=== PATIENT | female | born 1985 | race Caucasian/White ===

== ENCOUNTER 2022-12-01 22:09 | Emergency (ER) | payer OTHER, SELFPAY ==
--- NOTE | ~2022-12-01 | XR_ITS ---
EXAMINATION: XR chest 2V DATE: 12/01/2022 22:24 INDICATION: Chest pain radiating down the left arm. TECHNIQUE: Frontal and lateral views of the chest were obtained. COMPARISON: Chest 2 views 03/14/2014, chest CT 03/15/2014 FINDINGS: The chest demonstrates clear lungs without pneumonia, pleural effusion, or pneumothorax. Th e heart size is normal. IMPRESSION: 1. No acute cardiopulmonary disease. Reviewed, dictated and finalized at location E.
--- NOTE | 2022-12-01 22:12 | ECG_ITS ---
Measurements Intervals [place] Rate: 77 P: 57 SD: 119 QRS: 71 QRSD: 81 T: 64 QT: 360 QTc: 410 Interpretive Statements SINUS RHYTHM WITH SHORT SD INTERVAL NO PREVIOUS ECG AVAILABLE FOR COMPARISON Electronically Signed On 12-02-2022 11:00:46 CDT by Larry Sotelo M.D.
[2022-12-01 22:13] VITALS: BP 142/76; PULSE 89; RESP 18; TEMP 36.8; O2SAT 100
[2022-12-01 22:45] LABS: Basophils Absolute Auto 0.1 K/mm3 (0.0-0.1); Basophils Percent Auto 0.8 % (0.2-1.2); Eosinophils Absolute Auto 0.1 K/mm3 (0-0.3); Eosinophils Percent Auto 1.5 % (0-4.4); Hematocrit 41.7 % (37.0-47.0); Hemoglobin 13.6 g/dL (12.0-15.0); Immature Granulocyte Absolute 0.02 K/mm3 (0.00-0.031); Immature Granulocyte Percent A 0.3 % (0-0.5); Lymphocytes Percent Auto 37.1 % (18.3-44.2); Mean Corpuscular HGB Conc 32.6 g/dl (32-36); Mean Corpuscular Hemoglobin 29.2 pg (26-34); Mean Corpuscular Volume 89.7 fl (80-100); Mean Platelet Volume 9.5 fl (7.4-10.4); Monocytes Absolute Auto 0.8 K/mm3 (0.1-0.6); Monocytes Percent Auto 10.7 % (2.6-8.5); Neutrophils Absolute Auto 3.6 K/mm3 (1.3-6.7); Neutrophils Percent Auto 49.6 % (45.5-73.1); Platelet Count Result 302 k/mm3 (150-375); Red Blood Count 4.65 M/mm3 (4.2-5.4); Red Cell Distribution Width 12.8 % (11.5-14.5); White Blood Count 7.3 K/mm3 (4.5-10.0)
[2022-12-01 22:58] LABS: Prothrombin Time 13.5 Seconds (11.1-14.7)
[2022-12-01 23:06] LABS: Alanine Aminotransferase 21 U/L (6-35); Albumin Level 4.5 g/dL (3.5-5.1); Alkaline Phosphatase 47 U/L (38-126); Anion Gap 5 mmol/L (8-16); Aspartate Amino Transferase 30 U/L (14-36); Blood Urea Nitrogen 17 mg/dL (7-17); Calcium 9.2 mg/dL (8.4-10.2); Carbon Dioxide 29 mmol/L (22-30); Chloride 104 mmol/L (98-107); Estimated CRCL calculation 81 ml/min; Estimated Glomerular Filt Rate > 60; Glucose 99 mg/dL (65-110); Lipase 109 U/L (23-300); Potassium 3.7 mmol/L (3.4-5.0); Sodium 138 mmol/L (137-145)
[2022-12-01 23:18] LABS: Troponin I < 0.012 ng/mL (0.000-0.034)
--- NOTE | 2022-12-02 00:50 | ED.CHESTPAIN ---
HPI - Chest Pain General Chief Complaint: Chest Pain Stated Complaint: chest pain Time Seen by Provider: 12/02/22 00:11 Source: patient Mode of arrival: ambulatory Limitations: no limitations History of Present Illness HPI narrative: Patient is a 37-year-old female who presents to the ED with report of left-sided chest pain. Patient reports she was sitting on the couch watching TV around 9:30 PM when she developed pain in her sided chest. She states the pain is sharp and stabbing and began radiating into her left shoulder and down her left arm. She states the sharp pain lasted for 2 to 3 minutes before subsiding, however she still had some lingering discomfort in her left arm. Patient reported feeling mildly short of breath with the pain. Denies any nausea or vomiting, diaphoresis, abdominal pain, numbness or tingling. Since being in the ED, pain has resolved. Patient reported having similar pain in the past, but states it never radiated to her arm. She has otherwise felt in her normal state of health the last few days. She denies history of coronary disease, blood clots, hypertension, hyperlipidemia, diabetes, family history of heart disease, recent lower extremity pain or swelling, recent cough or cold sx's, hormonal control use, smoking history. Related Data Allergies Allergy/AdvReac Type Severity Reaction Status Date / Time No Known Allergies Allergy Verified 12/01/22 22:16 Review of Systems Review of Systems: CONSTITUTIONAL: Denies fever, chills, or sweats. ENT: Denies rhinorrhea, congestion, sore throat. CARDIOVASCULAR: See HPI. RESPIRATORY: See HPI. GASTROINTESTINAL: Denies abdominal pain, nausea, vomiting, or diarrhea. GENITOURINARY: Denies dysuria or hematuria. SKIN: Denies rash or itching. MUSCULOSKELETAL: See HPI. NEUROLOGIC: Denies tingling, numbness, or weakness. All systems reviewed & are unremarkable except as noted in HPI and below PMFSH Past Medical History Medical History (Updated 12/02/22 @ 02:05 by Saniya Goldsmith PA-C) No pertinent past medical history Surgical History Surgical History (Updated 12/02/22 @ 02:05 by Saniya Goldsmith PA-C) No pertinent past surgical history Social History Social History (Updated 12/02/22 @ 02:05 by Saniya Goldsmith PA-C) Smoking status: Never smoker Exam Narrative: GENERAL: Well appearing, well-nourished, non-toxic, in no acute distress. HEAD: Normocephalic, atraumatic. NECK: Supple. No adenopathy, no masses. RESPIRATORY: Airway patent, respirations nonlabored. Clear to auscultation bilaterally, no rales, rhonchi, wheezing. CARDIOVASCULAR: Regular rate and rhythm without murmurs, rubs, or gallops. Radial pulses 2+ and equal bilaterally. ABDOMINAL: Soft, nontender, nondistended, no hepatosplenomegaly. Normoactive BS. MUSCULOSKELETAL: Moves all extremities. Strength/ROM intact without gross deformities. No edema. No calf tenderness. No chest wall tenderness palpation. SKIN: Warm, dry, normal color. No rashes. NEURO: A&O X3. Speech clear. Cranial nerves II-XII grossly intact. Steady gait. No ataxic movements. PSYCHIATRIC: Appropriate mood and affect. Normal interaction. Course Vital Signs Vital signs: Vital Signs Temperature 98.2 F 12/01/22 22:13 Pulse Rate 89 12/01/22 22:13 Respiratory Rate 18 12/01/22 22:13 Blood Pressure 142/76 H 12/01/22 22:13 Pulse Oximetry 100 12/01/22 22:13 Oxygen Delivery Room Air 12/01/22 22:13 Temperature 98.2 F 12/01/22 22:13 Pulse Rate 89 12/01/22 22:13 Respiratory Rate 18 12/01/22 22:13 Blood Pressure 142/76 H 12/01/22 22:13 Pulse Oximetry 100 12/01/22 22:13 Oxygen Delivery Room Air 12/01/22 22:13 MDM - Chest Pain MDM Narrative Medical decision making narrative: Patient presented to ED with onset of left-sided chest pain radiating into left upper extremity. VSS upon arrival. Patient's EKGs and labs are without significant high risk c
[2022-12-02 01:06] VITALS: PULSE 61; RESP 17; O2SAT 100
[2022-12-02 01:15] VITALS: PULSE 64; RESP 17; O2SAT 100
[2022-12-02 01:30] VITALS: PULSE 62; PULSE 70; RESP 19; O2SAT 99
[2022-12-02 01:45] VITALS: PULSE 64; RESP 17; O2SAT 98
[2022-12-02 01:54] LABS: Troponin I < 0.012 ng/mL (0.000-0.034)
== END 2022-12-02 02:04 | disposition home or self-care (01) ==
PROVIDERS: Preventive Medicine Aerospace Medicine; Emergency Provider Physician Assistant; PCP Internal Medicine
DX: R07.89 Other chest pain (principal); R94.31 Abnormal electrocardiogram [ECG] [EKG]
CPT/HCPCS: 36415; 71046; 80053; 83690; 84484; 85025; 85610; 85730; 93005; 99284

== ENCOUNTER 2025-03-14 10:58 | Outpatient (CLI) | payer OTHER, SELFPAY ==
--- OUTSIDE RECORDS SUMMARY | 2025-03-14 11:03 | XMS_ITS | Clinical Summary ---
Author Organization [facility] Address [address] [place] [address] Care Team Providers Care Transformation Consultant Name Role Phone None, Provider MD Primary Care Provider Unavaila ble Allergies No known active allergies Social History Tobacco Use Types Packs/Day Years Used Date Smoking Tobacco: Never Smokeless Tobacco: Never Alcohol Use Standard Drinks/Week Comments Yes 0 (1 standard drink = 0.6 oz pur e alcohol) social Comments No Sex and Gender Information Value Date Recorded Sex Assigned at Not on file Legal Sex Female 12:13 AM CDT Gender Identity Not on file Sexual Orientation Not on file Last Filed Vital Signs Vital Sign Reading Time Taken Comments Blood Pressure 117/80 02/20/2019 3:23 AM CDT Pulse 65 02/20/2019 3:23 AM CDT Temperature 37.1 C (98.8 F) 02/20/2019 12:22 AM CDT Respiratory Rate 18 02/20/2019 3:23 AM CDT Oxygen Saturation 99% 02/20/2019 3:23 AM CDT Inhaled Oxygen Concentration - - Weight 61.9 kg (136 lb 6.4 oz) 02/20/2019 12:22 AM CDT Height 170.2 cm (5' 7) 02/20/2019 12:22 AM CDT Body Mass Index 21.36 02/20/2019 12:22 AM CDT Plan of Treatment Health Maintenance Due Date Last Done Comments Cervical Cancer Screening Pa p Smear (Age 30 to 64) Every 3 Years 1984 Annual Physical 11/26/1987 Hepatitis C 2002 DTaP, Tdap and Td Vaccines ( 1 - Tdap) 11/26/2003 Hepatitis B Vaccines (1 of 3 - 19+ 3-dose series) 11/26/2003 HPV Vaccines (1 - 3-dose SCD M series) 11/26/2011 Cervical Cancer Screening Pa p with HPV Testing (Age 30 to 64) Every 5 Years 2014 Cervical Cancer Screening with HPV 2014 COVID-19 Vaccine (2023-2 5 season) 2024 Mammogram Screening 2024 Meningococcal B Vaccine Aged Out No l onger eligible based on patient's age to complete this topic Meningococcal Vaccine Aged Out No shoaib yulissa eligible based on patient's age to complete this topic Pneumococcal Vaccine: Pediat rics (0 to 5 Years) and At-Risk Patients (6 to 49 Years) Aged Out No longer eligible b ased on patient's age to complete this topic RSV Immunizations Under 20 Months Aged Out No longer eligible based on patient's age to complete this topic Insurance NA Care Teams Transformation Consultant Relationship Specialty Start Date End Date None, Provider, PCP - General 02/20/19
--- OUTSIDE RECORDS SUMMARY | 2025-03-14 11:03 | XMS_ITS | Clinical Summary ---
Author Organization [facility] Address [address] [facility] [place] [address] Care Team Providers Care Bunghole Borer Name Role Phone Adrianne Bliss NP Primary Care Provider [phone] Allergies No known active allergies Medications citalopram (CeleXA) 20 mg tabletIndication s:Anxiety with Depression Take 1 tablet (20 mg total) by mouth daily 30 tablet 1 08/29/2024 6 Active Active Problems Problem Noted Date Diagnosed Date Moderate episode of recurrent major depressive d isorder 08/29/2024 Assessment & Plan (08/29/2024 11:03 AM PREMIUM SERVICE REPRESENTATIVE): This is a significant, separately identifiable problem that was evaluated and managed on the same day as the wellness exam Abdominal pain 03/24/2022 BMI 22.0-22.9, adult 06/23/2021 Major depressive disorder wi th single episode, in full remission 06/17/2020 Screening for diabetes mellitus 06/17/2020 Sore throat and laryngitis 10/18/2019 Attention deficit hyperactiv ity disorder (ADHD), predominantly inattentive type 04/12/2019 Capsular contracture of breast implant 9 Overview (12/21/2018): Added automatically from request for surgery [id number] PND (post-nasal drip) 11/06/2018 Anxiety 03/07/2016 Encounters Date Type Department Care Team Description 02/18/2025 Telephone [facility] Family Medicine [address] [address] Adrianne Bliss NP Additional Services Or Orders from Last 3 Months Immunizations Immunization Administration Dates Next Due Influenza, Quadrivalent, Spl it, Intramuscular 08/01/2017 Influenza, Quadrivalent, Spl it, Preservative Free, Intramuscular 06/17/2020 Influenza, Unspecified 08/29/2024(Deferr ed: Patient Refused),08/07/2023(Deferred: Patient Refused) Tdap 01/16/2015 Surgical History Surgery Date Site/Laterality Comments BREAST SURGERY 08/07/2005 - 08/06/2006 bilateral breast implants Medical History Medical History Date Comments Anxiety Family History Medical History Relation Name Comments No Known Problems Father Anesthesia problems Maternal Grandmother COPD Mother Hypertension Mother Relation Name Status Comments Father Alive Maternal Grandmother Mother Alive Social History Tobacco Use Types Packs/Day Years Used Date Smoking Tobacco: Never Smokeless Tobacco: Never Alcohol Use Standard Drinks/Week Comments Yes 0 (1 standard drink = 0.6 oz pur e alcohol) rare AUDIT-C Answer Date Recorded Q1: How often do you have a drink containing alc ohol? Monthly or less 03/24/2022 Q2: How many drinks containi ng alcohol do you have on a typical day when you are drinking? 1 or 2 03/24/2022 Frequency of Binge Drinking Not on file 03/07 PHQ-2 Answer Date Recorded PHQ-2 Total Score (If total score is 3 or more points, staff should administer the PHQ-9) 4 08/29/2024 PHQ-9 Answer Date Recorded PHQ-9 Total Score 6 08/29/2024 Comments No Sex and Gender Information Value Date Recorded Sex Assigned at Not on file Legal Sex Female 8:32 PM PREMIUM SERVICE REPRESENTATIVE Gender Identity Not on file Sexual Orientation Not on file Obstetrics History Last Filed Vital Signs Vital Sign Reading Time Taken Comments Blood Pressure 108/74 08/29/2024 10:35 AM PREMIUM SERVICE REPRESENTATIVE Pulse 78 08/29/2024 10:35 AM PREMIUM SERVICE REPRESENTATIVE Temperature 37.1 C (98.7 F) 08/29/2024 10:35 AM PREMIUM SERVICE REPRESENTATIVE Respiratory Rate 12 03/24/2022 1:16 PM CDT Oxygen Saturation 98% 08/29/2024 10:35 AM PREMIUM SERVICE REPRESENTATIVE Inhaled Oxygen Concentration - - Weight 65.8 kg (145 lb) 08/29/2024 10:35 AM PREMIUM SERVICE REPRESENTATIVE Height 170.2 cm (5' 7) 08/29/2024 10:35 AM PREMIUM SERVICE REPRESENTATIVE Body Mass Index 22.71 08/29/2024 10:35 AM PREMIUM SERVICE REPRESENTATIVE Plan of Treatment Health Maintenance Due Date Last Done Comments Breast Cancer Screening-Mammogram 1984 Hepatitis C Screening 1984 Varicella Vaccines (1 of 2 - 13+ 2-dose series) 1997 Hepatitis B Screening 2002 HPV Vaccines (1 - 3-dose SCDM series) 11/26/2011 Cervical Cancer Screening 06/16/2021 06/16/2020 DTaP/Tdap/Td Vaccine (2 - Td or Tdap) 01/16/2025 01/16/2015 Influenza Vaccine (#1) 2025 06/17/2020, 2016 Depression Screening 08/29/2025 08/29/2024, 08/29/2024, 03/24/2022, Additional history exists Regular Well Visit/Exam 18-64 08/29/2025 08/29/2024 Pneumococcal vaccine <65 Aged Out No longer eligible based on patient's age to complete this topic Procedures Procedure Name Priority Date/Time Associated Diagnosis Comments GENITAL FLUID PAP SMEAR, THI N PREP WITH HPV EVALUATION Routine 06/16/2020 from Last 3 Months or Most Recently Relevant to Health Maintenance Results * Genital fluid pap smear, thin prep with HPV evaluation (06/16/2020) 06/16/2020 [facility] Provider LAB CYTOLOGY ORDERABLES F inal Result from Last 3 Months or Most Recently Relevant to Health Maintenance Insurance RADHA OPEN ACCESS CIGNA CIGNA OPEN ACCESS CIGNA Care Teams Bunghole Borer Relationship Specialty Start Date End Date Adrianne Bliss NP [address] [facility] [address] [place] [address] PCP - General Internal Medicine 11/02/22
--- OUTSIDE RECORDS SUMMARY | 2025-03-14 11:03 | XMS_ITS | Patient Health Record ---
Author Organization [facility] [employer] Address [facility] [facility] [address] [facility] [address] [place] [address] Care Team Providers Care Email Production Specialist Name Role Phone Rgoer Aguilar Unavailable [phone] Reason For Referral No Information Plan Of Treatment No Information
--- OUTSIDE RECORDS SUMMARY | 2025-03-14 11:03 | XMS_ITS | Encounter Summary ---
Author Organization [employer] Address [address] [place] [address] Care Team Providers Care Telecommunications Line Mechanic Name Role Phone Unavailable Primary Care Provider Unavailabl e Encounter Details Date Type Department Care Team (Late st Contact Info) Description 01/21/2005 Emergency [facility] Simone Henry MD [address] [place] [id number] Er, Authorized P NO ADDRESS ON FILE DEPRESS PSYCHOSIS-UNSPEC (Primary Dx) Social History Tobacco Use Types Packs/Day Years Used Date Smoking Tobacco: Never Assessed Comments Unknown Sex and Gender Information Value Date Recorded Sex Assigned at Not on file Legal Sex Female 4:54 AM PROJECT MANAGEMENT DIRECTOR Gender Identity Not on file Sexual Orientation Not on file documented as of this encounter Plan of Treatment Not on file documented as of this encounter Visit Diagnoses Diagnosis Major depressive disorder, single episode, unspecified- Primary documented in this encounter
--- OUTSIDE RECORDS SUMMARY | 2025-03-14 11:03 | XMS_ITS | Clinical Summary ---
Author Organization [facility] Address [address] [place] [address] Care Team Providers Care Automation Control Technician Name Role Phone Unavailable Primary Care Provider Unavailabl e Encounters Date Type Department Care Team Description 12/26/2024 External Device Data [facility] ABSTRACTION Provider, Abstract 12/25/2024 External Device Data [facility] ABSTRACTION Provider, Abstract 12/24/2024 External Device Data [facility] ABSTRACTION Provider, Abstract from Last 3 Months Social History Tobacco Use Types Packs/Day Years Used Date Smoking Tobacco: Never Assessed Comments Unknown Sex and Gender Information Value Date Recorded Sex Assigned at Not on file Legal Sex Female 4:54 AM PLASTER CASTER Gender Identity Not on file Sexual Orientation Not on file Plan of Treatment Health Maintenance Due Date Last Done Comments HPV VACCINES (1 - 3-dose series) 11/26/1999 HEPATITIS B VACCINES (1 of 3 - 19+ 3-dose series) 11/26/2003 HPV/Cotest (21-29) 2005 CERVICAL CANCER SCREENING 2014 HPV/Cotest (30-65) 2014 PAP SMEAR 2014 BREAST CANCER SCREENING 01/15/2025 01/16/2024 DTAP/TDAP/TD VACCINES (2 - Td or Tdap) 01/16/2025 INFLUENZA VACCINE (#1) 2025 06/17/2020, 2016 Procedures Procedure Name Priority Date/Time Associated Diagnosis Comments MAMMO 3D EDITA DIAGNOSTIC BILAT W OR WO CAD Routine 01/16/2024 11:16 AM CDT Mass of right breast, unspecified quadrant from Last 3 Months or Most Recently Relevant to Health Maintenance Results * MAMMO 3D EDITA DIAGNOSTIC BILAT W OR WO CAD (01/16/2024 11:16 AM CDT) Anatomical Region Laterality Modality Breast Bilateral Mammography 01/16/2024 11:2 8 AM CDT Impressions 01/16/2024 12:01 PM CDT IMPRESSION: No mammographic evidence of malignancy. OVERALL FINAL ASSESSMENT: BI-RADS CATEGORY 1 : Negative RECOMMENDATIONS: Routine mammogram in one year. Narrative 01/16/2024 12:01 PM CDT EXAM: BILATERAL DIAGNOSTIC FULL-FIELD DIGITAL MAMMOGRAPHY WITH CAD WITH 3D TOMOSYNTHESIS DATE: 01/16/2024 11:16 AM HISTORY: Palpable area of the right breast TECHNIQUE: Mediolateral oblique and craniocaudal views of both breasts were performed using full field digital mammography. Additionally, a 90 degree lateral projection of the right breast was obtained. Low-dose full-field digital breast tomosynthesis examination was performed with 2D and 3D acquisitions. Examination is read in conjunction with computer aided detection. COMPARISON: None. Baseline. BREAST COMPOSITION: Heterogeneously dense, which limits the sensitivity of mammography. FINDINGS: No suspicious masses, suspicious microcalcifications or areas of architectural distortion are noted. Ultrasound through the area of concern reveals islands of dense fibroglandular tissue but no suspicious masses. Bacilio Mccartney MD MAMMO ORDERABLES Robyn l Result from Last 3 Months or Most Recently Relevant to Health Maintenance Insurance [facility] OPEN ACCESS HMO
[2025-03-14 11:22] LABS: Hematocrit 44.4 % (37.0-47.0); Hemoglobin 15.0 g/dL (12.0-15.0); Immature Granulocyte Percent A 0.2 % (0-0.5); Lymphocytes Absolute Auto 1.46 K/mm3 (0.9-3.2); Mean Corpuscular HGB Conc 33.8 g/dl (32-36); Mean Corpuscular Hemoglobin 30.5 pg (26-34); Mean Corpuscular Volume 90.2 fl (80-100); Nucleated Red Blood Cells Absolute Auto 0.000 K/mm3 (0.0-0.012); Nucleated Red Blood Cells Perc 0.0 % (0.0-0.2); Platelet Count Result 273 k/mm3 (150-375); Red Blood Count 4.92 M/mm3 (4.2-5.4); White Blood Count 4.7 K/mm3 (4.5-10.0)
== END 2025-03-14 10:59 | disposition home or self-care (01) ==
LOC: ANHSURGERY 11:02
PROVIDERS: PCP Nurse Practitioner Family; Visit Provider Obstetrics & Gynecology
DX: N85.2 Hypertrophy of uterus (principal)
CPT/HCPCS: 36415; 85025; 86850; 86900; 86901

== ENCOUNTER 2025-03-16 12:01 | Emergency (ER) | payer OTHER, SELFPAY ==
[2025-03-16] VITALS (26 sets, daily range): BP systolic 123–145; BP diastolic 74–105; PULSE 71–108; RESP 12–22; TEMP 36.7; O2SAT 96–100
--- NOTE | ~2025-03-16 | CT_ITS ---
EXAMINATION: CT abdomen pelvis wo con DATE: 03/16/2025 13:23 INDICATION: left flank pain TECHNIQUE: Computed tomography (CT) of the abdomen and pelvis was performed without intravenous contr ast. Automated exposure control and iterative reconstruction technique were employed. The dose-length product was 168.85 mGy-cm. COMPARISON: None. FINDINGS: Lower thorax: Unremarkable Liver: Normal. Biliary/Gallbladder: Gallbladder is normal. No bile duct dilation. Pancreas: No mass or duct dilation. Spleen: Normal. Adrenals:No mass. Kidneys: No suspicious mass, obstructing stone, or hydronephrosis. GI tract: No small or large bowel dilation. Normal appendix. Mesentery/Peritoneum: No ascites, mass, or free air. Mild diffuse mesenteric stranding. Retroperitoneum: No mass. Pelvis: 7.4 x 11.6 x 17.0 cm, slightly heterogeneous soft tissue density midline pelvic mass, apparen tly emanating from the uterus. Uterus is displaced to the right and anteriorly by the pelvic mass. Th e bladder is displaced slightly anteriorly. The distal ureters are not traceable in their entirety, g iven displacement of normal anatomy by the pelvic mass as well as paucity of abdominal pelvic fat. Se veral punctate calcifications in the deep pelvis. Normal bilateral ovaries. Soft Tissues: Soft tissues and body wall unremarkable. Bones: No acute osseous finding. IMPRESSION: Mild nonspecific mesenteric edema. 17 cm midline pelvic mass, possible large, exophytic fibroid. Recommend gynecology consultation and t imely pelvic MRI for definitive characterization. Distal ureters are not completely visualized. Several punctate calcifications in the pelvis near the expected path of the ureters. A small distal ureteral stone is not excluded, however there is no hydr onephrosis to suggest significant obstructive uropathy. Reviewed, dictated and finalized at location K. IMPRESSION: Mild nonspecific mesenteric edema. 17 cm midline pelvic mass, possible large, exophytic fibroid. Recommend gynecol ogy consultation and timely pelvic MRI for definitive characterization. Distal ureters are not completely visualized. Several punctate calcifications i n the pelvis near the expected path of the ureters. A small distal ureteral sto ne is not excluded, however there is no hydronephrosis to suggest significant o bstructive uropathy.
--- OUTSIDE RECORDS SUMMARY | 2025-03-16 12:03 | XMS_ITS | Clinical Summary ---
Author Organization [facility] Address [address] [place] [address] Care Team Providers Care Soft Mud Molder Name Role Phone None, Provider MD Primary [...] complete this topic Insurance NA Care Teams Soft Mud Molder Relationship Specialty Start Date End Date None, Provider, PCP - General 02/20/19
--- OUTSIDE RECORDS SUMMARY | 2025-03-16 12:03 | XMS_ITS | Clinical Summary ---
Author Organization [employer] [facility] Address [address] [place] [address] Care Team Providers Care Program Clinician Name Role Phone Unavailable Primary Care Provider [...] on file Legal Sex Female 4:54 AM SHIPBUILDING DRAFTSPERSON Gender Identity Not on file Sexual Orientation [...] Most Recently Relevant to Health Maintenance Insurance [facility] OPEN ACCESS HMO
--- OUTSIDE RECORDS SUMMARY | 2025-03-16 12:03 | XMS_ITS | Encounter Summary ---
Author Organization [employer] Address [address] [place] [address] Care Team Providers Care Technical Associate Name Role Phone Unavailable Primary Care Provider Unavailabl e Encounter Details Date Type Department Care Team (Late st Contact Info) Description 01/21/2005 Emergency [facility] Simone Henry MD [address] [place] [id number] Er, Authorized P NO ADDRESS ON FILE DEPRESS PSYCHOSIS-UNSPEC (Primary Dx) Social History Tobacco Use Types Packs/Day Years Used Date Smoking Tobacco: Never Assessed Comments Unknown Sex and Gender Information Value Date Recorded Sex Assigned at Not on file Legal Sex Female 4:54 AM HOUSING RELOCATION Gender Identity Not on file Sexual Orientation Not on file documented as of this encounter Plan of Treatment Not on file documented as of this encounter Visit Diagnoses Diagnosis Major depressive disorder, single episode, unspecified- Primary documented in this encounter
--- OUTSIDE RECORDS SUMMARY | 2025-03-16 12:03 | XMS_ITS | Clinical Summary ---
Author Organization [facility] Address [address] [facility] [place] [address] Care Team Providers Care Punchboard Filling Machine Operator Name Role Phone Adrianne Bliss NP Primary Care Provider [phone] Allergies No known active allergies Medications citalopram (CeleXA) 20 mg tabletIndication s:Anxiety with Depression Take 1 tablet (20 mg total) by mouth daily 30 tablet 1 08/29/2024 6 Active Active Problems Problem Noted Date Diagnosed Date Moderate episode of recurrent major depressive d isorder 08/29/2024 Assessment & Plan (08/29/2024 11:03 AM AUTH SPECIALIST): This is a significant, separately identifiable problem [...] (12/21/2018): Added automatically from request for surgery [id number] PND (post-nasal drip) 11/06/2018 Anxiety 03/07/2016 Encounters Date Type Department Care Team Description 02/18/2025 Telephone [facility] Family Medicine [address] [address] Adrianne Bliss NP Additional Services [...] on file Legal Sex Female 8:32 PM AUTH SPECIALIST Gender Identity Not on file Sexual Orientation Not on file Obstetrics History Last Filed Vital Signs Vital Sign Reading Time Taken Comments Blood Pressure 108/74 08/29/2024 10:35 AM AUTH SPECIALIST Pulse 78 08/29/2024 10:35 AM AUTH SPECIALIST Temperature 37.1 C (98.7 F) 08/29/2024 10:35 AM AUTH SPECIALIST Respiratory Rate 12 03/24/2022 1:16 PM CDT Oxygen Saturation 98% 08/29/2024 10:35 AM AUTH SPECIALIST Inhaled Oxygen Concentration - - Weight 65.8 kg (145 lb) 08/29/2024 10:35 AM AUTH SPECIALIST Height 170.2 cm (5' 7) 08/29/2024 10:35 AM AUTH SPECIALIST Body Mass Index 22.71 08/29/2024 10:35 AM AUTH SPECIALIST Plan of Treatment Health Maintenance Due Date [...] thin prep with HPV evaluation (06/16/2020) 06/16/2020 [facility] Provider LAB CYTOLOGY ORDERABLES F inal Result from Last 3 Months or Most Recently Relevant to Health Maintenance Insurance [employer] OPEN ACCESS CIGNA CIGNA OPEN ACCESS CIGNA Care Teams Punchboard Filling Machine Operator Relationship Specialty Start Date End Date Adrianne Bliss NP [address] [facility] [address] [place] [address] PCP - General Internal Medicine 11/02/22
--- OUTSIDE RECORDS SUMMARY | 2025-03-16 12:03 | XMS_ITS | Patient Health Record ---
Author Organization [facility] Address [facility] [address] [facility] [address] [place] [address] Care Team Providers Care Track Service Worker Name Role Phone Roger Aguilar Unavailable [phone] Reason For Referral No Information Plan Of Treatment No Information
--- OUTSIDE RECORDS SUMMARY | 2025-03-16 12:35 | XMS_ITS | Clinical Summary ---
Author Organization [facility] Address [address] [place] [address] Care Team Providers Care Slab Grinder Name Role Phone None, Provider MD Primary [...] complete this topic Insurance NA Care Teams Slab Grinder Relationship Specialty Start Date End Date None, Provider, PCP - General 02/20/19
--- OUTSIDE RECORDS SUMMARY | 2025-03-16 12:35 | XMS_ITS | Clinical Summary ---
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
--- OUTSIDE RECORDS SUMMARY | 2025-03-16 12:35 | XMS_ITS | Encounter Summary ---
Author Organization [employer] Address 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
--- OUTSIDE RECORDS SUMMARY | 2025-03-16 12:35 | XMS_ITS | Clinical Summary ---
Author Organization [facility] Address [address] [facility] [place] [address] Care Team Providers Care Employment Appeals Examiner Name Role Phone Adrianne Bliss NP Primary Care Provider [phone] Allergies No known active allergies Medications citalopram (CeleXA) 20 mg tabletIndication s:Anxiety with Depression Take 1 tablet (20 mg total) by mouth daily 30 tablet 1 08/29/2024 6 Active Active Problems Problem Noted Date Diagnosed Date Moderate episode of recurrent major depressive d isorder 08/29/2024 Assessment & Plan (08/29/2024 11:03 AM GROUND MIXER): This is a significant, separately identifiable problem [...] (12/21/2018): Added automatically from request for surgery [id number] PND (post-nasal drip) 11/06/2018 Anxiety 03/07/2016 Encounters Date Type Department Care Team Description 02/18/[address] [facility] Family Medicine [address] [address] Adrianne Bliss NP Additional Services [...] on file Legal Sex Female 8:32 PM GROUND MIXER Gender Identity Not on file Sexual Orientation Not on file Obstetrics History Last Filed Vital Signs Vital Sign Reading Time Taken Comments Blood Pressure 108/74 08/29/2024 10:35 AM GROUND MIXER Pulse 78 08/29/2024 10:35 AM GROUND MIXER Temperature 37.1 C (98.7 F) 08/29/2024 10:35 AM GROUND MIXER Respiratory Rate 12 03/24/2022 1:16 PM CDT Oxygen Saturation 98% 08/29/2024 10:35 AM GROUND MIXER Inhaled Oxygen Concentration - - Weight 65.8 kg (145 lb) 08/29/2024 10:35 AM GROUND MIXER Height 170.2 cm (5' 7) 08/29/2024 10:35 AM GROUND MIXER Body Mass Index 22.71 08/29/2024 10:35 AM GROUND MIXER Plan of Treatment Health Maintenance Due Date [...] thin prep with HPV evaluation (06/16/2020) 06/16/2020 [facility] Provider LAB CYTOLOGY ORDERABLES F inal Result from Last 3 Months or Most Recently Relevant to Health Maintenance Insurance [employer] OPEN ACCESS CIGNA CIGNA OPEN ACCESS CIGNA Care Teams Employment Appeals Examiner Relationship Specialty Start Date End Date Adrianne Bliss NP [address] [facility] [address] [place] [address] PCP - General Internal Medicine 11/02/22
[2025-03-16 13:06] LABS: BEDSIDEPREGUCG Negative (Negative)
[2025-03-16 13:14] LABS: Hematocrit 43.9 % (37.0-47.0); Hemoglobin 14.8 g/dL (12.0-15.0); Immature Granulocyte Percent A 0.3 % (0-0.5); Lymphocytes Absolute Auto 1.09 K/mm3 (0.9-3.2); Mean Corpuscular HGB Conc 33.7 g/dl (32-36); Mean Corpuscular Hemoglobin 30.0 pg (26-34); Mean Corpuscular Volume 89.0 fl (80-100); Nucleated Red Blood Cells Absolute Auto 0.000 K/mm3 (0.0-0.012); Nucleated Red Blood Cells Perc 0.0 % (0.0-0.2); Platelet Count Result 271 k/mm3 (150-375); Red Blood Count 4.93 M/mm3 (4.2-5.4); White Blood Count 5.8 K/mm3 (4.5-10.0)
[2025-03-16 13:16] LABS: Add Urine Microscopic? NO; Appearance Urine Clear (Clear); Glucose Urine UA Negative (Negative); Leukocyte Esterase Ur Negative LEU/UL (Negative); Nitrate Urine Negative (Negative); Specific Grav Ur 1.003 (1.001-1.035)
[2025-03-16 13:23] LABS: Alanine Aminotransferase 13 U/L (6-35); Albumin Level 4.4 g/dL (3.5-5.1); Alkaline Phosphatase 46 U/L (38-126); Anion Gap 8 mmol/L (4-12); Aspartate Amino Transferase 22 U/L (14-36); Bilirubin,Total 1.2 mg/dL (0.2-1.3); Blood Urea Nitrogen 16 mg/dL (7-17); Calcium 9.4 mg/dL (8.4-10.2); Carbon Dioxide 24 mmol/L (22-30); Chloride 104 mmol/L (98-107); Estimated CRCL calculation 79 ml/min; Estimated Glomerular Filt Rate > 60; Glucose 105 mg/dL (65-110); Lipase 67 U/L (23-300); Potassium 4.0 mmol/L (3.4-5.0); Sodium 136 mmol/L (137-145); Total Protein 7.5 g/dL (6.3-8.2)
--- NOTE | 2025-03-16 14:33 | ECG_ITS ---
Test Date: 2025-03-16 14:36:07 Measurements Intervals [place] Rate: 78 P: 60 [place]: 127 QRS: 59 QRSD: 90 T: 49 QT: 381 QTc: 435 Interpretive Statements SINUS RHYTHM NORMAL ECG No previous ECG available for comparison Electronically Signed On 03-16-2025 17:31:15 CDT by Bryce Meek D.O.
--- NOTE | 2025-03-16 14:34 | ED_ITS ---
HPI - General Adult General Chief complaint: Dizziness Stated complaint: left flank pain, dizzy Time Seen by Provider: 03/16/25 12:21 History of Present Illness HPI narrative: Patient is a 39-year-old female who presents ER with left-sided flank pain dizziness. Sudden onset while she was sitting in yars[place]. Had some achiness in left back. She had also had some achiness yesterday. She then felt slightly lightheaded. No pelvic pain. No urinary frequency urgency or dysuria. Known fibroid uterus and she is scheduled to have a hysterectomy this week. No vaginal bleeding. No aggravating or alleviating factors. Related Data Home Medications ?Medication ?Instructions ?Recorded ?Confirmed ?Last Taken ?Type alprazolam 0.25 mg tablet 0.25 mg PO BID PRN anxiety 03/11/25 03/11/25 Unknown History Allergies Allergy/AdvReac Type Severity Reaction Status Date / Time No Known Allergies Allergy Verified 03/16/25 12:53 Review of Systems 2 Review of Systems: All systems reviewed & are unremarkable except as noted in HPI and below Constitutional: Constitutional: Reports no additional constitutional complaints Cardiovascular: Cardiovascular: Reports no additional cardiovascular complaints Respiratory: Respiratory: Reports no additional respiratory complaints Gastrointestinal: Gastrointestinal: Reports no additional gastrointestinal complaints Musculoskeletal: Musculoskeletal: Reports no additional musculoskeletal complaints [facility] Past Medical History Medical History (Updated 03/16/25 @ 16:09 by James Donis MD) No pertinent past medical history Surgical History Surgical History (System 02/19/25 @ 08:26 by Marlin Monson) No pertinent past surgical history Family History Family History (System 02/19/25 @ 08:26 by Marlin Monson) Mother Hypertension Social History Social History (System 02/19/25 @ 08:26 by Marlin Monson) Smoking status: Never smoker Alcohol intake: never Living arrangements: with family Spiritual care concerns: No Exam 2 Narrative: GENERAL: Well-appearing, well-nourished, and in no acute distress. HEAD: Normocephalic, atraumatic. ENT: Mucous membranes moist. CHEST: Clear to auscultation. No respiratory distress. HEART: Regular rate and rhythm. Normal peripheral pulses. ABDOMEN: Soft, nontender, nondistended. Palpable uterus up to the umbilicus. No CVA tenderness. EXTREMITIES: Normal range of motion. No edema. SKIN: Warm, dry, no rash. NEURO: Alert and oriented x3. PSYCH: Normal mood and affect. Course Course Emergency Course: 1553: Blood work/urine unremarkable. CT with pelvic calcifications, there is no blood in the urine sided not think she is passing a kidney stone. Recommend follow-up with her superintendent distribution. Vital Signs Vital signs: Vital Signs Temperature 98.0 F 03/16/25 12:30 Pulse Rate 82 03/16/25 12:30 Respiratory Rate 18 03/16/25 12:30 Blood Pressure 123/80 03/16/25 12:30 Pulse Oximetry 97 03/16/25 12:30 Oxygen Delivery Room Air 03/16/25 12:30 Temperature 98.0 F 03/16/25 12:30 Pulse Rate 98 03/16/25 13:06 Respiratory Rate 18 03/16/25 12:30 Blood Pressure 123/90 03/16/25 13:06 Pulse Oximetry 97 03/16/25 12:30 Oxygen Delivery Room Air 03/16/25 12:30 Medical Decision Making Vital Signs Vital Signs: Vital Signs Temperature 98.0 F 03/16/25 12:30 Pulse Rate 82 03/16/25 12:30 Respiratory Rate 18 03/16/25 12:30 Blood Pressure 123/80 03/16/25 12:30 Pulse Oximetry 97 03/16/25 12:30 Oxygen Delivery Room Air 03/16/25 12:30 Temperature 98.0 F 03/16/25 12:30 Pulse Rate 98 03/16/25 13:06 Respiratory Rate 18 03/16/25 12:30 Blood Pressure 123/90 03/16/25 13:06 Pulse Oximetry 97 03/16/25 12:30 Oxygen Delivery Room Air 03/16/25 12:30 Lab Data 03/16/25 13:03 03/16/25 13:03 Labs: Lab Results 03/16/25 03/16/25 Range/Units 13:03 13:04 WBC 5.8 (4.5-10.0) K/mm3 RBC 4.93 (4.2-5.4) M/mm3 Hgb 14.8 (12.0-15.0) g/dL Hct 43.9 (37.0-47.0) % MCV 89.0 (80-100) fl MCH 30.0 (26-34) pg MCHC 33.7 (32-36) g/dl RDW 11.9 (11.5-14.5) % Plt Count 271 (150-375) k/mm3 MPV 9.3 (7.4-10.4) fl Immature Gran % (Auto) 0.3 (0-0.5) % Neut % (Auto) 67.8 (45.5-73.1) % Lymph % (Auto) 19.0 (18.3-44.2) % [place] % (Auto) 11.5 H (2.6-8.5) % Eos % (Auto) 0.7 (0-4.4) % Baso % (Auto) 0.7 (0.2-1.2) % Lymph # (Auto) 1.09 (0.9-3.2) K/mm3 [place] # (Auto) 0.7 H (0.1-0.6) K/mm3 Eos # (Auto) 0.0 (0-0.3) K/mm3 Baso # (Auto) 0.0 (0.0-0.1) K/mm3 Abs Immat Gran (auto) 0.02 (0.00-0.031) K/mm3 Absolute Neuts (auto) 3.9 (1.3-6.7) K/mm3 Absolute Nucleated RBC 0.000 (0.0-0.012) K/mm3 Nucleated RBC % 0.0 (0.0-0.2) % Sodium 136 L (137-145) mmol/L Potassium 4.0 (3.4-5.0) mmol/L Chloride 104 (98-107) mmol/L Carbon Dioxide 24 (22-30) mmol/L Anion Gap 8 (4-12) mmol/L BUN 16 (7-17) mg/dL Creatinine 0.80 (0.7-1.0) mg/dL Estim Creat Clear Calc 79 ml/min Estimated GFR > 60 (59 - ) Glucose 105 (65-110) mg/dL Lactic Acid 0.9 (0.7-2.0) mmol/L Calcium 9.4 (8.4-10.2) mg/dL Total Bilirubin 1.2 (0.2-1.3) mg/dL AST 22 (14-36) U/L ALT 13 (6-35) U/L Alkaline Phosphatase 46 (38-126) U/L Total Protein 7.5 (6.3-8.2) g/dL Albumin 4.4 (3.5-5.1) g/dL Lipase 67 (23-300) U/L Urine Color Yellow (Yellow) Urine Appearance Clear (Clear) Urine pH 6.5 (5.0-9.0) Ur Specific [place] 1.003 (1.001-1.035) Urine Protein Negative (Negative) mg/dL Urine Glucose (UA) Negative (Negative) mg/dL Urine Ketones Negative (Negative) mg/dL Ur Blood (Man) Negative (Negative) Urine Nitrate Negative (Negative) Urine Bilirubin Negative (Negative) Urine Urobilinogen 0.2 (<2.0) mg/dL Leukocyte Esterase Rfl Negative (Negative) DAMIAN/UL POC Urine HCG, Qual Negative (Negative) Discharge Plan Discharge Clinical Impression: Low back pain, Lightheadedness Patient Disposition: Home Condition: Stable Instructions: Back Pain (ED) Additional Instructions: Please return to the emergency department if you develop severe pain that is not controlled by pain medications or if you are unable to walk because of pain or weakness. Return to the emergency department immediately if you develop fevers, loss of bowel or bladder control (dribbling of urine or having accidents you wouldn't normally have), inability to urinate, numbness of your genital or anal area, or weakness/numbness of your legs or arms as these could all be signs of a serious medical emergency. Patient Language: Australian Prescriptions: No Action alprazolam 0.25 mg tablet 0.25 mg PO BID PRN (Reason: anxiety) Follow-up/Referrals: Izaiah,GRACIELA Silver [Primary Care Provider] - 1 Week
== END 2025-03-16 16:27 | disposition home or self-care (01) ==
PROVIDERS: Emergency Provider Emergency Medicine; PCP Nurse Practitioner Family
DX: M54.50 Low back pain, unspecified (principal); R42 Dizziness and giddiness
CPT/HCPCS: 36415; 74176; 80053; 81003; 81025; 83605; 83690; 85025; 93005; 99284

== ENCOUNTER 2025-03-21 06:15 | Day surgery (SDC) | payer OTHER, SELFPAY ==
[2025-03-11 10:18] VITALS: BMI 22.7
--- NOTE | 2025-03-11 10:29 | SUR.PREOP ---
Report to the Outpatient Waiting Room, entrance under the green pavilion located off [facility], at time 0600 on date 03/21/2025. Planned Procedure Time: 0730. Time changes happen often and if your time is changed the preop area will call you the afternoon before. - You and your visitor will be asked to self-screen and do not enter if you have any COVID symptoms. Please call surgeon if you need to reschedule. - A mask is optional within the hospital at this time. Patients may have clear liquids (water, carbonated beverages, clear teas, apple juice) until 3 hours prior to surgery with a maximum of 20 ounces. - No food from midnight until time of surgery and no smoking, or chewing tobacco (or any form of nicotine). No chewing gum, candy or mints. - Infants may have breast milk until 4 hours before surgery, infant formula 6 hours prior to surgery. - Children will be allowed to drink immediately following surgery.? If applicable, please bring a bottle or sippy cup to assist with drinking. Juice, water, soda, and popsicles are readily available.? For infants on formula, please bring formula the day of surgery.? Pacifiers are allowed. Take only the following medications with a SIP of water on the morning of surgery: N/A DO NOT STOP ANY OF YOUR OTHER PRESCRIPTION MEDICATIONS PRIOR TO SURGERY EXCEPT THE FOLLOWING Hold all vitamins and supplements for 3 days per anesthesiologist. Medications to discontinue per physician N/A Date to take last dose Please no make-up, nail liberian, hairspray, perfume, deodorant, or body powder the day of surgery.? No jewelry (including any body piercings) or valuables the day of surgery, leave them at home.? Please take a shower or bath the night before, or the morning of, surgery with an antibacterial soap.? Wear comfortable, loose fitting clothing.? Children are encouraged to wear pajamas. - Jewelry must be removed prior to entering the operating room.? Rings and piercings that are not removed may be cut off. - The hospital will not accept responsibility for valuables.? - Please leave all valuables, including medications, at home the day of surgery. If you are going home after surgery, a licensed four horse hitch driver must drive you home.? - NO public transportation without another adult if you receive anesthesia. - We recommend that an adult stay with you for 24 hours following discharge. - We also recommend that you do not drive, make important decision, drink alcoholic beverages, or take any drugs that were not prescribed by your health care provider for at least 24 hours after your discharge time. For Pediatric surgeries, we recommend two adults accompany the child home. Follow any additional instructions given to you from your surgeon. Telephone instructions given to patient and asked if any additional questions and then verbalized understanding. Patient advised to call surgeon office or pre surgery nurse liaison [phone] if any additional questions.
--- NOTE | 2025-03-20 06:24 | PM.IMHP ---
H&P: HPI History of Present Illness Date/Time: 03/20/25 06:24 Chief Complaint: Fibroid uterus Narrative: 39-year-old multiparous patient admitted for robotic total vaginal hysterectomy bilateral salpingectomy secondary to a large fibroid uterus. Discussed pain discomfort dyspareunia risks and benefits reviewed including not exclusive of , aspiration bleeding, transfusion, perforation injury to bowel, bladder, ureters, or other internal organs with need for open laparotomy. She received the ACOG handout entitled hysterectomy as well as the [facility] handout. She had all questions answered. She asked to proceed. Review of Systems Review of Systems: All systems reviewed & are unremarkable except as noted in HPI and below Constitutional: Constitutional: Reports no additional constitutional complaints Cardiovascular: Cardiovascular: Reports no additional cardiovascular complaints Respiratory: Respiratory: Reports no additional respiratory complaints Gastrointestinal: Gastrointestinal: Reports no additional gastrointestinal complaints Musculoskeletal: Musculoskeletal: Reports no additional musculoskeletal complaints [facility] Past Medical History Medical History No pertinent past medical history Surgical History Surgical History No pertinent past surgical history Family History Family History Mother Hypertension Social History Social History Smoking status: Never smoker Alcohol intake: never Living arrangements: with family Spiritual care concerns: No Meds Home Medications and Allergies Home Medications ?Medication ?Instructions ?Recorded ?Confirmed ?Type alprazolam 0.25 mg tablet 0.25 mg PO BID PRN anxiety 03/11/25 03/11/25 History Allergies Allergy/AdvReac Type Severity Reaction Status Date / Time No Known Allergies Allergy Verified 03/16/25 12:53 Exam Const: General: cooperative, healthy appearing, comfortable, well groomed and average body habitus Orientation/consciousness: oriented to person, oriented to place and oriented to time HENMT: Head: normal to inspection Resp: Effort & Inspection: normal respiratory effort Cardio: Rate: regular rate Rhythm: regular rhythm Heart sounds: S1 normal heart sound present and S2 normal heart sound present GI: Inspection: normal to inspection : External Female Exam: normal external appearance Speculum Exam - Vagina: normal appearance of the vagina Speculum Exam - Cervix: normal appearance of the cervix Bimanual exam- vagina & uterus: enlarged Bimanual Exam- Adnexa, other: normal adnexae Assessment and Plan Assessment and plan (1) Uterine fibroid: Code(s): D25.9 - Leiomyoma of uterus, unspecified Status: Acute Plan Proceed with robotic total vaginal hysterectomy and bilateral salpingectomy
--- NOTE | 2025-03-20 14:32 | WPDANESEPPF ---
Anes - Initial Pre Proc Eval Procedure: Operation Date: 03/21/25 07:30 Proposed Procedures p Robotic Assisted Total Vaginal Hysterectomy with Bilateral Salpingectomy - Bacilio Mccartney MD Date/Time: 03/20/25 14:32 Surgeon: Bacilio Mccartney MD Pre Op Diagnosis: enlarg uterus, pelvic pain, fibroids Patient Data Age: 39 Gender: F Height: 1.7 m Weight: 65.77 kg Allergies Allergy/AdvReac Type Severity Reaction Status Date / Time No Known Allergies Allergy Verified 03/16/25 12:53 Home Medications ?Medication ?Instructions ?Recorded ?Confirmed ?Type alprazolam 0.25 mg tablet 0.25 mg PO BID PRN anxiety 03/11/25 03/11/25 History hydrocodone 5 mg-acetaminophen 325 1 tablet PO Q4H PRN pain #20 tabs 03/21/25 Rx mg tablet Patient hx anesthesia problems: post op nausea/vomiting Family hx anesthesia problems: none Results Review: All pre-operative results and documents have been reviewed as part of the pre-operative evaluation. [facility] Past Medical History Medical History (Updated 03/20/25 @ 14:32 by Aadm Henao DO) Anxiety Uterine fibroid Surgical History Surgical History No pertinent past surgical history Family History Family History Mother Hypertension Social History Social History Smoking status: Never smoker Alcohol intake: never Living arrangements: with family Spiritual care concerns: No Anes - Eval Final PreProcedure Day of Procedure 03/20/25 14:32 Patient weight: normal Heart: regular rate and rhythm Lungs: clear to auscultation Airway: Mallampati scale class II Neurological: alert and oriented Last oral intake: >/= 8 hours ASA classification: II Emergent: no Anesthetic plan: proceed Anesthesia type and monitoring: general ETT and standard monitoring Results Review: All pre-operative results and documents have been reviewed as part of the pre-operative evaluation. Informed Consent: The patient's anesthetic plan and its attendant risks and benefits were discussed with the patient/family/POA. Questions were solicited and answers provided to the satisfaction of the patient/family/POA.
[2025-03-21] VITALS (11 sets, daily range): BP systolic 98–142; BP diastolic 52–89; PULSE 57–98; RESP 12–20; TEMP 36.3–37.7; O2SAT 100
--- OUTSIDE RECORDS SUMMARY | 2025-03-21 06:17 | XMS_ITS | Clinical Summary ---
Author Organization [facility] Address [address] [place] [address] Care Team Providers Care Drag Seiner Name Role Phone None, Provider MD Primary [...] complete this topic Insurance NA Care Teams Drag Seiner Relationship Specialty Start Date End Date None, Provider, PCP - General 02/20/19
--- OUTSIDE RECORDS SUMMARY | 2025-03-21 06:18 | XMS_ITS | Encounter Summary ---
Author Organization [employer] Address 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
--- OUTSIDE RECORDS SUMMARY | 2025-03-21 06:18 | XMS_ITS | Clinical Summary ---
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 OPEN ACCESS HMO
--- OUTSIDE RECORDS SUMMARY | 2025-03-21 06:18 | XMS_ITS | Clinical Summary ---
Author Organization [facility] Address [address] [facility] [place] [address] Care Team Providers Care Sample Worker Name Role Phone Adrianne Bliss NP Primary Care Provider [phone] Allergies No known active allergies Medications citalopram (CeleXA) 20 mg tabletIndication s:Anxiety with Depression Take 1 tablet (20 mg total) by mouth daily 30 tablet 1 08/29/2024 6 Active Active Problems Problem Noted Date Diagnosed Date Moderate episode of recurrent major depressive d isorder 08/29/2024 Assessment & Plan (08/29/2024 11:03 AM PRODUCE ASSOCIATE): This is a significant, separately identifiable problem [...] (12/21/2018): Added automatically from request for surgery [id number] PND (post-nasal drip) 11/06/2018 Anxiety 03/07/2016 Encounters Date Type Department Care Team Description 02/18/2025 Telephone [facility] Family Medicine [address] [address] Adrianne Bliss NP Additional Services [...] on file Legal Sex Female 8:32 PM PRODUCE ASSOCIATE Gender Identity Not on file Sexual Orientation Not on file Obstetrics History Last Filed Vital Signs Vital Sign Reading Time Taken Comments Blood Pressure 108/74 08/29/2024 10:35 AM PRODUCE ASSOCIATE Pulse 78 08/29/2024 10:35 AM PRODUCE ASSOCIATE Temperature 37.1 C (98.7 F) 08/29/2024 10:35 AM PRODUCE ASSOCIATE Respiratory Rate 12 03/24/2022 1:16 PM CDT Oxygen Saturation 98% 08/29/2024 10:35 AM PRODUCE ASSOCIATE Inhaled Oxygen Concentration - - Weight 65.8 kg (145 lb) 08/29/2024 10:35 AM PRODUCE ASSOCIATE Height 170.2 cm (5' 7) 08/29/2024 10:35 AM PRODUCE ASSOCIATE Body Mass Index 22.71 08/29/2024 10:35 AM PRODUCE ASSOCIATE Plan of Treatment Health Maintenance Due Date [...] thin prep with HPV evaluation (06/16/2020) 06/16/2020 [facility] Provider LAB CYTOLOGY ORDERABLES F inal Result from Last 3 Months or Most Recently Relevant to Health Maintenance Insurance [employer] OPEN ACCESS CIGNA CIGNA OPEN ACCESS CIGNA Care Teams Sample Worker Relationship Specialty Start Date End Date Adrianne Bliss NP [address] [facility] [address] [place] [address] PCP - General Internal Medicine 11/02/22
--- OUTSIDE RECORDS SUMMARY | 2025-03-21 06:18 | XMS_ITS | Patient Health Record ---
Author Organization [facility] [employer] Address [facility] [facility] [address] [facility] [address] [place] [address] Care Team Providers Care Day Care Supervisor Name Role Phone Roger Aguilar Unavailable [phone] Reason For Referral No Information Plan Of Treatment No Information
--- NOTE | 2025-03-21 06:22 | WPDHPUPDATE1 ---
History and Physical Update Update Date/Time: 03/21/25 06:22 History and Physical has been reviewed, including an updated exam of the patient. There are NO changes in the patient's condition. Risks, benefits, and alternatives have been discussed and questions answered. Patient agrees to proceed with procedure.
[2025-03-21] MEDS: LACTATED RINGERS 1,000 ML 30 ML IV CONT ×2 (07:00→10:40)
[2025-03-21] MEDS: KETOROLAC 15 MG/ML VIAL (*BKC) IV PUSH (07:00)
[2025-03-21] MEDS: SCOPOLAMINE 1 MG PATCH 1 PATCH TRANSDERM (07:00)
[2025-03-21] MEDS: ACETAMINOPHEN 500 MG TABLET 1000 MG PO ×3 (07:00→18:34)
[2025-03-21] MEDS: ceFAZolin 2 GM in SODIUM CHLORIDE 0.9% IV 50 ML 100 ML IVPB (07:24)
[2025-03-21 07:47] LABS: BEDSIDEPREGUCG Negative (Negative)
--- NOTE | 2025-03-21 10:19 | S_PTH ---
PATIENT: Amy Ibanez LOC: [facility] U#:[id number] AGE/SX: 39/F ROOM: RE03/21/[address]: Bacilio Mccartney MD : 1985 BED: DIS: 03/22/2025 SPEC #: [id number] RECD: 03/21/25 11:17 STATUS: SALLY REQ #: [id number] TAWNYA: 03/21/25 10:[address]: Bacilio Wolf DEPT: [facility] Surgical RECD BY: Serina Mccray ENTERED: 03/21/25 11:17 SP TYPE: Surgical OTHR DR: Adrianne Bliss, TODDLER LEAD TEACHER Tissues: A - Uterus Procedures: Hematoxylin and Eosin Stain Gross and Microscopic Level 5
--- NOTE | 2025-03-21 10:25 | P.OP_ITS ---
Procedure Note - Detailed Date of Procedure 03/21/25 Pre-op Diagnosis enlarg uterus, pelvic pain, fibroids Post-op Diagnosis Same Procedure Performed Robotic total vaginal hysterectomy bilateral salpingectomy with extensive lysis of adhesions Surgeon Bacilio Mccartney MD Anesthesia General Indications This is 39-year-old female with a large suspected pedunculated fibroid Findings The large pedunculated fibroid about the size of a was markedly adherent to the cul-de-sac the ureter left lateral sidewall colon. Normal-appearing ovaries and tubes were present. The uterus was mildly enlarged Description of Procedure Patient was prepped and draped in sterile fashion placed in dorsal position. Excellent trach anesthesia weighted speculum placed in posterior fornix vagina. The cervix could not be found easily and a 16 Spanish catheter was placed in the bladder the bladder drained of clear urine the weighted speculum was removed the gloves were changed. A supraumbilical incision made the Veress needle passed in the abdomen. Abdomen filled with CO2 gas [id number]. The 8mm trocar advanced in the abdomen. Downside visualized no injury seen. Patient placed in Trendelenburg and right left lateral quadrant incision made. 8mm trocars advanced under direct visualization assuring no injury. A right upper quadrant incision made the 8mm trocar advanced under direct visualization assuring no injury. A large fibroid was seen with a fairly normal appearing uterus ovaries and tubes. The fibroid appeared to be pedunculated coming from the posterior surface of the left side of the cervix. The robot was docked. An gloves were changed. Attention was turned to the school adjustment counselor. As noted the cold cup in uterine manipulator were not able to be placed due to the marked displacement of the uterine cervix. Attention was turned initially to the fallopian tubes which were sharply dissected away from the ovarian complex bilaterally and left attached to the origin. A bladder flap was formed after the round ligaments were grasped bilaterally burned cut. The difficult part began at this point the colon was markedly adherent to this the bowling ball size fibroid uterus which had a stalk coming from the cervix in lateral edge of the uterus. Using sharp dissection the perineal body was sharply dissected around this mass slowly by sharp dissection the fibroid was relieved in its entirety over the 360? until the base of this fibroid could be seen. The ureter was markedly adherent during this process and was watched throughout cross laterally away from mass. The colon also had to be sharply dissected away which was sharply adherent to the but the mass as well. Once this was clear the pedunculated trunk of the fibroid could be seen and this wish clamped burned cut several times and the fibroid removed cephalad away from the dissecting area. The utero-ovarian ligament on the left was skeletonized to conserve the left ovary was clamped, cut and burned and brought to level of previously cut round ligament. In similar fashion a conserve the right ovary utero-ovarian ligament was clamped, burned, cut brought to the level of previously cut round ligament. The cardinal broad ligaments on the left were then serially skeletonized these were large tortuous and almost sinus like. These were sharply dissected by clamping burning cutting and bringing this down to these blood vessels which were individually clamped, burned, cut. This was repeated on the cut right side where the cardinal broad ligaments were serially skeletonized clamping burning cutting and bringing this to level of the uterine vessels these uterine vessels were markedly enlarged as well were serially clamped, burned, cut. Colpotomy incision was made and the cervix uterus tubes through the vagina. The large pedunculated fibroid was cut in 3 linear Fashions to make an elongated piece and it came out in 3 pieces. The vagina was then closed with continuous running V lock from lateral edge to lateral edge back to the midline. Vigorous irrigation undertaken and all particular parts were. Blood loss was estimated [id number] and the cul-de-sac was rather wall from the of all this peritoneum and was sprinkled with [place] term. Hemostasis was assured. The robot was undocked. The gas removed from the abdomen the incisions in the abdomen closed with 3-0 Monocryl and glue QBL was 300cc. Sponge, needle, instrument counts were correct. Total weight for the uterus tubes and the pedunculated fibroid was over 875g. There were no immediate complications noted Estimated Blood Loss 300 Drains No Packing No Pathology Yes Complications No immediate complications Condition Stable Disposition PACU
--- NOTE | 2025-03-21 10:33 | PM.DS ---
DS: Admitting Diagnosis Discharge Date 03/22/2025 Admitting Diagnosis Uterine fibroid DS: Discharge Diagnosis Discharge Diagnosis (1) Uterine fibroid: Code(s): D25.9 - Leiomyoma of uterus, unspecified Status: Acute DS: Summary Hospital Course Reason for hospitalization: 39-year-old multiparous female who was admitted for robotic total vaginal hysterectomy and bilateral salpingectomy secondary to a large pedunculated fibroid Hospital Course: Patient underwent robotic total vaginal hysterectomy and bilateral salpingectomy extensive lysis of adhesions on 03/11/2015 25. Her hospital course unremarkable. She remained afebrile. She was up, voiding without difficulty, eating regular diet, ambulating, and generally without complaints. Time Spent with Patient Time attestation: Total time spent providing and/or coordinating discharge services: Exam Const: General: cooperative, healthy appearing, comfortable, well groomed and average body habitus Orientation/consciousness: oriented to person, oriented to place and oriented to time HENMT: Head: normal to inspection Resp: Effort & Inspection: normal respiratory effort Cardio: Rate: regular rate Rhythm: regular rhythm Heart sounds: S1 normal heart sound present and S2 normal heart sound present GI: Inspection: normal to inspection : External Female Exam: normal external appearance Speculum Exam - Vagina: normal appearance of the vagina Speculum Exam - Cervix: normal appearance of the cervix Bimanual exam- vagina & uterus: enlarged Bimanual Exam- Adnexa, other: normal adnexae DS: Data Data Completed and Pending Pending studies at discharge: Pending at discharge 03/21/25 10:19 Surgical [PTH] Routine Labs on day of discharge: Labs from last 24 hours 03/21/25 07:00 POC Urine HCG, Qual Negative Discharge Plan Discharge Patient Disposition: Home Patient Language: Sierra Leonean Stand Alone Forms: General Discharge Instructions Follow-up/Referrals: Bacilio Wolf MD [Physician] - Discharge Medications: New hydrocodone-acetaminophen 5-325 mg tablet 1 tablet PO Q4H PRN (Reason: pain) Qty: 20 0RF No Action alprazolam 0.25 mg tablet 0.25 mg PO BID PRN (Reason: anxiety)
[2025-03-21] MEDS: fentaNYL CITRATE INJ (*CRX) 100 MCG/2 ML VIAL 25 MCG IV PUSH ×4 (11:25→11:45)
--- NOTE | 2025-03-21 12:17 | ADMGEN ---
1209-This patient, Amy Ibanez, was admitted to room #289 via bed. Patient/family oriented to hospital policies and general routines including ID bracelet, bed and alarms, visiting hours, pain management, procedures, bathroom and other care routines, personal items, smoking policy, room service/diet, and visiting hours. Information on how to activate the Rapid Response Team has been discussed. Patient/Family are encouraged to report perceived risks to care and to ask questions if they do not understand what they are told or what they should do.
[2025-03-21] MEDS: KETOROLAC 30 MG/ML VIAL (*BKC) IV PUSH ×2 (12:59→18:34)
[2025-03-21] MEDS: DEXTROSE 5%/0.45% SOD CHL 1,000 ML 125 ML IV CONT (13:01)
[2025-03-21] MEDS: SIMETHICONE 80 MG TAB.CHEW PO ×3 (13:01→22:46)
[2025-03-21] MEDS: DOCUSATE SODIUM 100 MG CAPSULE PO (17:36)
[2025-03-21] MEDS: oxyCODONE HCL (*CRX) 5 MG TAB IR PO ×2 (17:53→22:46)
[2025-03-21] MEDS: MORPHINE SULFATE (*CRX) 2 MG/ML INJ (19:45)
[2025-03-21] MEDS: MORPHINE SULFATE (*CRX) 2 MG/ML INJ IV PUSH (19:45)
[2025-03-21] MEDS: ONDANSETRON INJ 4 MG/2 ML VIAL IV PUSH (22:44)
[2025-03-22] MEDS: KETOROLAC 30 MG/ML VIAL (*BKC) IV PUSH (01:10)
[2025-03-22] MEDS: ACETAMINOPHEN 500 MG TABLET 1000 MG PO ×2 (01:11→07:47)
[2025-03-22 04:39] VITALS: BP 106/55; PULSE 80; RESP 14; TEMP 37.1; O2SAT 100
[2025-03-22 05:58] LABS: Hematocrit 31.9 % (37.0-47.0); Hemoglobin 10.3 g/dL (12.0-15.0); Immature Granulocyte Percent A 0.5 % (0-0.5); Lymphocytes Absolute Auto 1.31 K/mm3 (0.9-3.2); Mean Corpuscular HGB Conc 32.3 g/dl (32-36); Mean Corpuscular Hemoglobin 30.6 pg (26-34); Mean Corpuscular Volume 94.7 fl (80-100); Nucleated Red Blood Cells Absolute Auto 0.000 K/mm3 (0.0-0.012); Nucleated Red Blood Cells Perc 0.0 % (0.0-0.2); Platelet Count Result 202 k/mm3 (150-375); Red Blood Count 3.37 M/mm3 (4.2-5.4); White Blood Count 9.8 K/mm3 (4.5-10.0)
--- NOTE | 2025-03-22 06:48 | P.PNOB_ITS ---
ROLLS BAKER - A/P Assessment and plan (1) Uterine fibroid: Code(s): D25.9 - Leiomyoma of uterus, unspecified Status: Acute Plan home Postoperative Procedures: Procedures Operation Date: 03/21/25 07:30 Actual Procedure Side Surgeon p Robotic Assisted Total Vaginal Hysterectomy with Bilateral Salpingectomy Bilateral Bacilio Mccartney MD Time Spent With Patient Time: Total time spent is greater than 50% in coordination of care (as documented) at patient's floor/unit and/or counseling patient: Time with patient: less than 15 minutes ROLLS BAKER- PN:Subj Post-Op Subjective Date/time seen: 03/22/25 06:48 Subjective: patient reports feeling better, patient has no complaints, patient desires discharge, pain is well controlled and patient is tolerating oral intake Review of Systems 2 Review of Systems: All systems reviewed & are unremarkable except as noted in HPI and below Constitutional: Constitutional: Reports no additional constitutional complaints Cardiovascular: Cardiovascular: Reports no additional cardiovascular complaints Respiratory: Respiratory: Reports no additional respiratory complaints Gastrointestinal: Gastrointestinal: Reports no additional gastrointestinal complaints Musculoskeletal: Musculoskeletal: Reports no additional musculoskeletal complaints Exam 2 Const: General: cooperative, healthy appearing, comfortable, well groomed and average body habitus Orientation/consciousness: oriented to person, oriented to place and oriented to time HENMT: Head: normal to inspection Resp: Effort & Inspection: normal respiratory effort Cardio: Rate: regular rate Rhythm: regular rhythm Heart sounds: S1 normal heart sound present and S2 normal heart sound present GI: Inspection: normal to inspection : External Female Exam: normal external appearance Speculum Exam - Vagina: normal appearance of the vagina Speculum Exam - Cervix: normal appearance of the cervix Bimanual exam- vagina & uterus: enlarged Bimanual Exam- Adnexa, other: normal adnexae ROLLS BAKER - PN: Obj Data Vital Signs Vital Signs: Vital Signs - 24 hr 03/21/25 07:00 03/21/25 10:40 03/21/25 10:55 Temperature 99.3 F 97.4 F L Pulse Rate 98 70 60 Respiratory Rate 16 18 14 Blood Pressure 142/89 H 98/85 L 111/68 Pulse Oximetry 100 100 100 Oxygen Delivery Room Air Simple Face Mask Simple Face Mask Oxygen Flow Rate 8 8 03/21/25 11:10 03/21/25 11:25 03/21/25 11:40 Temperature Pulse Rate 70 60 60 Respiratory Rate 12 14 20 Blood Pressure 120/69 118/79 116/63 Pulse Oximetry 100 100 100 Oxygen Delivery Room Air Room Air Room Air Oxygen Flow Rate 03/21/25 11:55 03/21/25 12:30 03/21/25 12:30 Temperature 97.6 F Pulse Rate 62 62 62 Respiratory Rate 18 16 16 Blood Pressure 112/58 L 113/52 L Pulse Oximetry 100 100 100 Oxygen Delivery Room Air Room Air Oxygen Flow Rate 03/21/25 16:02 03/21/25 18:30 03/21/25 23:50 Temperature 98.3 F 99.9 F H 99.2 F Pulse Rate 57 L 74 77 Respiratory Rate 16 14 14 Blood Pressure 99/53 L 113/64 109/66 Pulse Oximetry 100 100 100 Oxygen Delivery Oxygen Flow Rate 03/22/25 04:39 Temperature 98.8 F Pulse Rate 80 Respiratory Rate 14 Blood Pressure 106/55 L Pulse Oximetry 100 Oxygen Delivery Oxygen Flow Rate Intake/Output Intake/Output: Intake & Output 03/19/25 03/20/25 03/21/25 03/22/25 23:59 23:59 23:59 23:59 Intake Total 1771.3 1600 Output Total 1300 1600 Balance 471.3 0 Meds/Results Medications: Active Medications Generic Name Dose Route Start Last Admin Trade Name Freq PRN Reason Stop Dose Admin Acetaminophen 1,000 mg 03/21/25 12:04 03/22/25 01:11 Acetaminophen 500 Mg Tablet PO 1,000 mg Q6HR JOSH Administration Docusate Sodium 100 mg 03/21/25 17:00 03/21/25 17:36 Docusate Sodium 100 Mg Capsule PO 100 mg BID JOSH Administration Enoxaparin Sodium 40 mg 03/22/25 09:00 Enoxaparin 40 Mg/0.4 Ml Syringe SUB-Q DAILY JOSH Dextrose/Sodium Chloride 1,000 mls @ 125 mls/hr 03/21/25 12:40 03/21/25 17:40 Dextrose 5% Sodium Chloride 0.45% IV CONT 125 mls/hr .Q8H JOSH Infusion Ibuprofen 600 mg 03/22/25 06:00 Ibuprofen 600 Mg Tablet PO Q6HR JOSH Morphine Sulfate 2 mg 03/21/25 19:46 03/21/25 19:45 Morphine Sulfate (*Crx) 2 Mg/Ml Inj IV PUSH 2 mg Q4H PRN Administration Pain Rated 7-10 Naloxone HCl 0.1 mg 03/21/25 12:04 Naloxone Hcl 0.4 Mg/Ml Vial IV PUSH Q2M PRN Respiratory rate less than 10 Ondansetron HCl 4 mg 03/21/25 12:04 03/21/25 22:44 Ondansetron Inj 4 Mg/2 Ml Vial IV PUSH 4 mg Q6H PRN Administration Nausea And Vomiting Oxycodone HCl 5 mg 03/21/25 12:04 03/21/25 22:46 Oxycodone Hcl (*Crx) 5 Mg Tab Ir PO 5 mg Q4H PRN Administration Pain Rated 4-6 Oxycodone HCl 10 mg 03/21/25 12:04 Oxycodone Hcl (*Crx) 5 Mg Tab Ir PO Q6H PRN Pain Rated 7-10 Simethicone 80 mg 03/21/25 18:30 03/21/25 22:46 Simethicone 80 Mg Tab.Chew PO 80 mg Q2H PRN Administration Gas Discomfort Labs 03/22/25 05:06 Labs: Laboratory Results - last 24 hr 03/21/25 03/22/25 07:00 05:06 WBC 9.8 RBC 3.37 L Hgb 10.3 L D Hct 31.9 L MCV 94.7 D MCH 30.6 MCHC 32.3 RDW 12.3 Plt Count 202 MPV 9.7 Immature Gran % (Auto) 0.5 Neut % (Auto) 74.1 H Lymph % (Auto) 13.3 L [place] % (Auto) 11.8 H Eos % (Auto) 0.1 Baso % (Auto) 0.2 Lymph # (Auto) 1.31 [place] # (Auto) 1.2 H Eos # (Auto) 0.0 Baso # (Auto) 0.0 Abs Immat Gran (auto) 0.05 H Absolute Neuts (auto) 7.3 H Absolute Nucleated RBC 0.000 Nucleated RBC % 0.0 POC Urine HCG, Qual Negative
[2025-03-22 07:39] VITALS: BP 113/54; PULSE 64; RESP 18; TEMP 37.2; O2SAT 100
[2025-03-22] MEDS: ENOXAPARIN 40 MG/0.4 ML SYRINGE SUB-Q (07:47)
[2025-03-22] MEDS: DOCUSATE SODIUM 100 MG CAPSULE PO (07:47)
[2025-03-22] MEDS: IBUPROFEN 600 MG TABLET PO (07:47)
--- NOTE | 2025-03-22 10:06 | WPDANESPN ---
Anes - Prog Note Post-Op Date/Time: 03/22/25 10:06 Cardiovascular status: normal Respiratory status: normal Airway patency: baseline Mental status: baseline Post-Op hydration status: normal Vital Signs: Last Vital Signs Temp 98.9 F 03/22/25 07:39 Pulse 64 03/22/25 07:39 Resp 18 03/22/25 07:39 BP 113/54 L 03/22/25 07:39 Pulse Ox 100 03/22/25 07:39 O2 Del Method Room Air 03/21/25 12:30 O2 Flow Rate 8 03/21/25 10:55 Pain Score (VAS): 4 I/O: Intake & Output 03/21/25 03/22/25 03/22/25 23:59 07:59 15:59 Intake Total 1621.3 1600 Output Total 1300 1800 Balance 321.3 -200 Laboratory Tests 03/22/25 05:06 03/22/25 05:06 WBC 9.8 RBC 3.37 L Hgb 10.3 L D Hct 31.9 L MCV 94.7 D MCH 30.6 MCHC 32.3 RDW 12.3 Plt Count 202 MPV 9.7 Immature Gran % (Auto) 0.5 Neut % (Auto) 74.1 H Lymph % (Auto) 13.3 L [place] % (Auto) 11.8 H Eos % (Auto) 0.1 Baso % (Auto) 0.2 Lymph # (Auto) 1.31 [place] # (Auto) 1.2 H Eos # (Auto) 0.0 Baso # (Auto) 0.0 Abs Immat Gran (auto) 0.05 H Absolute Neuts (auto) 7.3 H Absolute Nucleated RBC 0.000 Nucleated RBC % 0.0 Post-procedural complaints: none Patient Feedback: Patient satisfied with anesthetic care.
[2025-03-22] MEDS: oxyCODONE HCL (*CRX) 5 MG TAB IR PO (10:16)
== END 2025-03-22 11:52 | disposition home or self-care (01) ==
LOC: ANHSURGERY 06:30 → ANHOB2 12:21
PROVIDERS: PCP Nurse Practitioner Family; Visit Provider Obstetrics & Gynecology
PROC: (CPT 58552; principal; 2025-03-21 07:30)
DX: D25.9 Leiomyoma of uterus, unspecified (principal); N80.03 Adenomyosis of the uterus; F41.9 Anxiety disorder, unspecified; Z79.891 Long term (current) use of opiate analgesic
CPT/HCPCS: 58552; S2900; 36415; 85025; 88307; 99199; J0690; A9270; J1100; J1650; J1885; J2003; J2250; J2270; J2405; J2704; J3010; J7120

== ENCOUNTER 2025-04-04 12:59 | Outpatient (CLI) | payer OTHER, SELFPAY ==
--- NOTE | ~2025-04-04 | MM_ITS ---
EXAMINATION: MM diagnostic alexy BI w luis INDICATION: 39-year old female; presents for evaluation of a palpable lump in the right breast which has since resolved and she does not remember the location of the lump. COMPARISON: 01/16/2024 TECHNIQUE: Digital breast tomosynthesis ML, CC and MLO views of the BILATERAL breast were obtained with computer-aided detection to assist in interpretation of the study. FINDINGS: The breasts are heterogeneously dense, which may obscure small masses. There are no suspicious masses, calcifications, architectural distortion or any other abnormality in either breast. IMPRESSION: No mammographic evidence of malignancy in either breast. RECOMMENDATIONS: Clinical management of patient's palpable lump. Annual screening mammography due in 12 months. BI-RADS 1, NEGATIVE Reviewed, dictated and finalized at location B.
--- OUTSIDE RECORDS SUMMARY | 2025-04-04 13:05 | XMS_ITS | Patient Health Record ---
Author Organization [facility] [employer] Address [facility] [address] [facility] [address] [place] [address] Care Team Providers Care Architecture Intern Name Role Phone Roger Aguilar Unavailable [phone] Reason For Referral No Information Plan Of Treatment No Information
--- OUTSIDE RECORDS SUMMARY | 2025-04-04 13:05 | XMS_ITS | Clinical Summary ---
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 Bacilio Mccartney MD MAMMO ORDERABLES Robyn tico Result from Last 3 Months or Most Recently Relevant to Health Maintenance Insurance PENDING SALE TO [facility] OPEN ACCESS O
--- OUTSIDE RECORDS SUMMARY | 2025-04-04 13:05 | XMS_ITS | Encounter Summary ---
Author Organization [employer] Address [address] [place] [address] Care Team Providers Care Professor Of Mechanical Engineering Name Role Phone Unavailable Primary Care Provider Unavailabl e Encounter Details Date Type Department Care Team (Late st Contact Info) Description 01/21/2005 Emergency [facility] Simone Henry MD [address] [place] [id number] [place], Authorized P NO ADDRESS ON FILE DEPRESS PSYCHOSIS-UNSPEC (Primary Dx) Social History Tobacco Use Types Packs/Day Years Used Date Smoking Tobacco: Never Assessed Comments Unknown Sex and Gender Information Value Date Recorded Sex Assigned at Not on file Legal Sex Female 4:54 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
--- OUTSIDE RECORDS SUMMARY | 2025-04-04 13:05 | XMS_ITS | Clinical Summary ---
Author Organization [facility] Address [address] [facility] [place] [address] Care Team Providers Care Mud Mixer Helper Name Role Phone Adrianne Bliss NP Primary Care Provider [phone] Allergies No known active allergies Medications citalopram (CeleXA) 20 mg tabletIndication s:Anxiety with Depression Take 1 tablet (20 mg total) by mouth daily 30 tablet 1 08/29/2024 6 Active Active Problems Problem Noted Date Diagnosed Date Moderate episode of recurrent major depressive d isorder 08/29/2024 Assessment & Plan (08/29/2024 11:03 AM TYPING ELEMENT MACHINE OPERATOR): This is a significant, separately identifiable problem [...] (12/21/2018): Added automatically from request for surgery [id number] PND (post-nasal drip) 11/06/2018 Anxiety 03/07/2016 Encounters Date Type Department Care Team Description 03/16/2025 Orders Only [facility] [place] Management [address] [place] [id number] Scanning, Provider 02/18/2025 Telephone [facility] [address] [facility] [address] [place] [phone] Adrianne Bliss NP Additional Services Or [...] on file Legal Sex Female 8:32 PM TYPING ELEMENT MACHINE OPERATOR Gender Identity Not on file Sexual Orientation Not on file Obstetrics History Last Filed Vital Signs Vital Sign Reading Time Taken Comments Blood Pressure 108/74 08/29/2024 10:35 AM TYPING ELEMENT MACHINE OPERATOR Pulse 78 08/29/2024 10:35 AM TYPING ELEMENT MACHINE OPERATOR Temperature 37.1 C (98.7 F) 08/29/2024 10:35 AM TYPING ELEMENT MACHINE OPERATOR Respiratory Rate 12 03/24/2022 1:16 PM CDT Oxygen Saturation 98% 08/29/2024 10:35 AM TYPING ELEMENT MACHINE OPERATOR Inhaled Oxygen Concentration - - Weight 65.8 kg (145 lb) 08/29/2024 10:35 AM TYPING ELEMENT MACHINE OPERATOR Height 170.2 cm (5' 7) 08/29/2024 10:35 AM TYPING ELEMENT MACHINE OPERATOR Body Mass Index 22.71 08/29/2024 10:35 AM TYPING ELEMENT MACHINE OPERATOR Plan of Treatment Health Maintenance Due Date [...] Procedure Name Priority Date/Time Associated Diagnosis Comments SCAN - RADIOLOGY/IMAGING 03/16/2025 GENITAL FLUID PAP SMEAR, THI N PREP WITH HPV EVALUATION Routine 06/16/2020 from Last 3 Months or Most Recently Relevant to Health Maintenance Results * SCAN - RADIOLOGY/IMAGING (03/16/2025) Anatomical Region Laterality Modality Other Provider Scanning Final Result * Genital fluid pap smear, thin prep with HPV evaluation (06/16/2020) 06/16/2020 [facility] Provider LAB CYTOLOGY ORDERABLES F inal Result from Last 3 Months or Most Recently Relevant to Health Maintenance Insurance [employer] OPEN ACCESS CIGNA CIGNA OPEN ACCESS CIGNA Care Teams Mud Mixer Helper Relationship Specialty Start Date End Date Adrianne Bliss NP [address] [place] [address] PCP - General Internal Medicine 11/02/22
== END 2025-04-04 13:00 | disposition home or self-care (01) ==
LOC: ANHFOHIMG 13:02
PROVIDERS: PCP Nurse Practitioner Family; Visit Provider Obstetrics & Gynecology
DX: N63.31 Unspecified lump in axillary tail of the right breast (principal); N63.32 Unspecified lump in axillary tail of the left breast
CPT/HCPCS: 77062; 77066; G0279